=== PATIENT | male | born 1985 | race African-American/Black ===

== ENCOUNTER 2021-10-05 10:16 | Emergency (ER) | payer MEDICAID, OTHER ==
[~2021-10-05] VITALS: Ht 170.2 cm; Wt 65.8 kg
[2021-10-05] MEDS ORDERED: KETOROLAC TROMETH 60MG/2ML VIAL IM ONE (11:30)
[2021-10-05] MEDS ORDERED: HYDROcodone-ACET 10/325MG TAB PO ONE (11:30)
[2021-10-05] MEDS ORDERED: HYDR-4902 PO (12:58)
[2021-10-05] MEDS ORDERED: IBUP800T27 PO (12:58)
[2021-10-05 13:56] VITALS: BP 122/91
== END 2021-10-05 14:00 | disposition home or self-care (01) ==
LOC: ER 10:16
DX: S93.431A Sprain of tibiofibular ligament of right ankle, initial encounter (principal); S93.401A Sprain of unspecified ligament of right ankle, initial encounter; S70.11XA Contusion of right thigh, initial encounter; V89.0XXA Person injured in unspecified motor-vehicle accident, nontraffic, initial encounter; Y93.89 Activity, other specified; Y99.8 Other external cause status; Y92.89 Other specified places as the place of occurrence of the external cause
CPT/HCPCS: 73590; 73600; 93971

== ENCOUNTER 2022-05-12 13:41 | Emergency (ER) | payer OTHER ==
[~2022-05-12] VITALS: Ht 170.2 cm; Wt 66.1 kg
[~2022-05-12 13:41] MED LIST: HYDR-4902 PO; IBUP800T27 PO
[2022-05-12 14:22] VITALS: BP 128/72
[2022-05-12] MEDS ORDERED: DICL75TA3 PO (16:52)
== END 2022-05-13 01:07 | disposition left against medical advice (07) ==
LOC: ER 13:41
DX: M51.26 Other intervertebral disc displacement, lumbar region (principal)
CPT/HCPCS: 72125; 72131